=== PATIENT | female | born 1995 | race African-American/Black ===

== ENCOUNTER → 2017-02-06 | Outpatient (CLI) | payer OTHER ==
[2016-08-11 18:13] VITALS: BP 117/74
[2017-02-06 15:09] LABS: BILIRUBIN,URINE NEGATIVE (NEGATIVE); BLOOD/HEMOGLOBIN,URINE 2+ (NEGATIVE); GLUCOSE, URINE NEGATIVE (NEGATIVE); KETONES,URINE NEGATIVE (NEGATIVE); LEUKOCYTE ESTERASE ,URINE 1+ (NEGATIVE); NITRITES,URINE NEGATIVE (NEGATIVE); PROTEIN,URINE 1+ (NEGATIVE); UROBILINOGEN,URINE NORMAL (NORMAL)
[2017-02-06 15:14] LABS: BLOOD UREA NITROGEN 10 mg/dL (7-18); CALCIUM 8.1 mg/dL (8.5-10.1); CHLORIDE 104 mmol/L (98-107); CREATININE 0.73 mg/dL (0.55-1.02); GLUCOSE 95 mg/dL (65-99); SODIUM 136 mmol/L (136-145); eGFR BLACK RACES > 60 (>60); eGFR NON BLACK RACES > 60 (>60)
[2017-02-06 15:15] LABS: BASOPHILS # (AUTO) 0.1 X10^3/uL (0.0-0.1); MEAN CORPUSCULAR HGB CONC 33.6 g/dL (33.0-35.0); MONOCYTES # (AUTO) 0.6 x10^3/uL (0.3-0.8); RED CELL DISTRIBUTION WIDTH 13.1 % (11.6-16.5); WHITE BLOOD COUNT 9.5 X10^3/uL (3.6-10.0)
[2017-02-06 15:21] LABS: BASOPHILS % (AUTO) 0.7 % (0.2-1.0); EOSINOPHILS % (AUTO) 0.4 % (0.9-2.9); HEMATOCRIT 32.8 % (36.0-47.0); LYMPHOCYTES # (AUTO) 1.8 X10^3/uL (1.3-2.9); LYMPHOCYTES % (AUTO) 18.9 % (21.0-51.0); MEAN CORPUSCULAR HEMOGLOBIN 29.5 pg (27.0-34.0); MEAN CORPUSCULAR VOLUME 87.8 fL (80.0-100.0); MEAN PLATELET VOLUME 10.6 fL (7.4-11.0); MONOCYTES % (AUTO) 6.1 % (0.0-13.0); NEUTROPHILS % (AUTO) 73.9 % (42.0-75.0); PLATELET COUNT 178 X10^3/uL (150.0-450.0); RED BLOOD COUNT 3.73 X10^6/uL (3.5-5.4)
[2017-02-06 16:33] LABS: APPEARANCE,URINE CLEAR (CLEAR); BACTERIA,URINE TRACE /HPF (NEGATIVE); COLOR,URINE YELLOW (YELLOW); SQUAMOUS EPITHELIAL CELL,UR NUMEROUS /HPF (NEGATIVE)
[2017-02-06 16:34] LABS: RENAL EPITHELIAL CELLS,URINE RARE /HPF (NEGATIVE); SPERM,URINE FEW /HPF (NEGATIVE)
[2017-02-06 16:36] LABS: YEAST,URINE RARE /HPF (NEGATIVE)
== END ==
LOC: LAB 14:31
PROVIDERS: ATTEND Specialist
DX: Z01.818 Encounter for other preprocedural examination (principal); Z34.83 Encounter for supervision of other normal pregnancy, third trimester
CPT/HCPCS: 36415; 80048; 81001; 85025; 86592; 86850; 86900; 86901

== ENCOUNTER 2017-02-10 06:43 | Inpatient (IN) | payer OTHER ==
[2017-02-10] MEDS: D5 1/2 NS 1000 ML 1,000 ML IV SCH ×2 (06:50→15:41)
[2017-02-10] MEDS ORDERED: LR 1000 ML IV 1,000 ML IV ONE ×2 (06:52→10:00)
[2017-02-10] MEDS ORDERED: D5 1/2 NS 1000 ML 1,000 ML IV ONE (06:53)
[2017-02-10] MEDS ORDERED: D5LR 1000ML W PITOCIN 10 U/L 1,000 ML IV ONE (06:53)
[2017-02-10] MEDS ORDERED: PITOCIN ONE (06:53)
[2017-02-10] MEDS ORDERED: NUBAIN INJ 200 MG VIAL MULTIDOSE IVP PRN (06:56)
[2017-02-10] MEDS ORDERED: PHENERGAN INJ 25 MG IV PRN ×3 (06:56→15:37)
[2017-02-10] MEDS ORDERED: MORPHINE SULFATE INJ 2 MG IVP PRN (06:56)
[2017-02-10] MEDS ORDERED: PITOCIN IVP ONE (06:56)
[2017-02-10] MEDS ORDERED: REGLAN INJ 10 MG VIAL IVP PRN ×2 (06:56→15:37)
[2017-02-10] MEDS ORDERED: PITOCIN 10 UNITS in D5 LR 1000 ML 1,000 ML IV PRN (06:56)
[2017-02-10] MEDS ORDERED: AMPICILLIN VIAL 2 GM 2 GM in NS 100 ML IV + SPIKE MINIBAG* 100 ML IV SCH (06:56)
--- NOTE | 2017-02-10 07:15 | DR.OB ---
OB Quick Note - Assessment/Plan Assessment/Plan: L&D 02/10/17 at 7:10am S-No complaint. O-Afebrile, VSS UJR=409 with good LTV, +accel, no decel. CTX=none CVX=3cm/50%/-1/VTX AROM with clear fluid. IUPC and FSE placed. A-IUP at 39 2/7 weeks for induction h/o +GBS P-Begin pitocin induction Ampicillin in labor for h/o GBS Anticipate
[2017-02-10] MEDS ORDERED: NS 100 ML IV 100 ML IV ONE (07:37)
[2017-02-10] MEDS ORDERED: AMPICILLIN VIAL 2 GM ONE (07:37)
[2017-02-10] MEDS ORDERED: NAROPIN EPIDURAL 0.2% + FENTANYL 90MCG 60 ML EPI ONE (08:52)
[2017-02-10] MEDS ORDERED: FENTANYL INJ 100 mcg ONE (08:53)
[2017-02-10] MEDS ORDERED: NUBAIN INJ 10 ONE (09:05)
[2017-02-10] MEDS ORDERED: NAROPIN EPIDURAL 0.2% 97 ML with FENTANYL INJ 250 mcg 150 MCG EPI ONE ×2 (10:00)
[2017-02-10] MEDS ORDERED: NS 50 ML IV + SPIKE MINIBAG* 50 ML IV ONE (11:01)
[2017-02-10] MEDS ORDERED: AMPICILLIN VIAL 1 GM ONE (11:01)
[2017-02-10] MEDS ORDERED: AMPICILLIN VIAL 1 GM 1 GM in NS 50 ML IV + SPIKE MINIBAG* 50 ML IV SCH (12:00)
[2017-02-10] MEDS ORDERED: MOTRIN TAB 800 MG PO PRN ×2 (13:35→15:37)
[2017-02-10] MEDS ORDERED: NS 1000 ML 1,000 ML ONE (13:48)
[2017-02-10] MEDS ORDERED: D5 1/2 NS 1000ML W PITOCIN 20 U/L 1,000 ML IV ONE (13:48)
[2017-02-10] MEDS ORDERED: D5 1/2 NS 1000 ML 1,000 ML with PITOCIN 20 UNITS IV SCH ×4 (14:00→22:00)
[2017-02-10] MEDS ORDERED: MILK OF MAGNESIA PO PRN (15:37)
[2017-02-10] MEDS ORDERED: AMBIEN PO PRN (15:37)
[2017-02-10] MEDS ORDERED: DERMOPLAST SPRAY TOP PRN (15:37)
[2017-02-10] MEDS ORDERED: ADACEL TDaP IM ONE (15:37)
--- NOTE | 2017-02-10 16:19 | DR.OB ---
OB Quick Note - Assessment/Plan Assessment/Plan: L&D 02/10/17 at 11:55am Pitocin=14mu/min. Ampicillin S-No complaint. s/p epidural. O-Afebrile,VSS MNE=045 with good LTV, +accel, no decel. Occ. mild variables. CTX=q 2-2 1/2 min., about 45-55mmHg CVX=8cm/75%/-1 A-IUP at 39 2/7 weeks for induction h/o GBS P-Cont. pitocin induction and abx. in labor Anticipate
--- NOTE | 2017-02-10 16:23 | DR.OB ---
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 Head delivered over intact perineum. Nuchal cord x 1 reduced and loose. Nose and mouth bulb suctioned. Body delivered over intact perineum. handed to attendant. Cord sent for gases. Placenta delivered spontaneously / intact / 3 vessel cord. No CVX / vaginal / perineal tears. A small piece of membranes noted at os and grasped with forceps removing entirely. Viable female infant, VTX/OA, wt=6'4" and 9/9 , stable to NBN. Mother stable to RR. VSW=[id number].
[2017-02-10] MEDS: ZANTAC PO SCH (20:17)
[2017-02-11 05:16] LABS: HEMATOCRIT 26.2 % (36.0-47.0); HEMOGLOBIN 8.6 g/dL (12.0-16.0)
[2017-02-11] MEDS ORDERED: DEPO-PROVERA CONTRACEPTIVE INJ IM ONE (07:36)
[2017-02-11] MEDS: ZANTAC PO SCH (08:13)
[2017-02-11] MEDS ORDERED: PRENATAL PLUS PO SCH (09:00)
[2017-02-11 11:28] VITALS: BP 130/72
[2017-02-11] MEDS ORDERED: FERROUS SULFATE PO SCH (17:00)
== END 2017-02-11 13:30 | disposition home or self-care (01) | DRG 775 ==
LOC: LD 06:43 → MED/SURG 15:57
PROVIDERS: ADMIT Specialist; ATTEND Specialist
PROC: 10E0XZZ Delivery of Products of Conception, External Approach (ICD-10-PCS; principal; 2017-02-10)
PROC: 10907ZC Drainage of Amniotic Fluid, Therapeutic from Products of Conception, Via Natural or Artificial Opening (ICD-10-PCS; 2017-02-10)
PROC: 3E033VJ Introduction of Other Hormone into Peripheral Vein, Percutaneous Approach (ICD-10-PCS; 2017-02-10)
PROC: 00HU33Z Insertion of Infusion Device into Spinal Canal, Percutaneous Approach (ICD-10-PCS; 2017-02-10)
PROC: 3E0234Z Introduction of Serum, Toxoid and Vaccine into Muscle, Percutaneous Approach (ICD-10-PCS; 2017-02-10)
DX: O99.02 Anemia complicating childbirth (principal); Z37.0 Single live birth; O99.824 Streptococcus B carrier state complicating childbirth; O26.893 Other specified pregnancy related conditions, third trimester; D50.8 Other iron deficiency anemias; Z3A.39 39 weeks gestation of pregnancy; Z23 Encounter for immunization
CPT/HCPCS: 09167; 36415; 59409; 85014; 85018; A4216; A4222; S0197; J0290; J1050; J2300; J2590; J3010; J7042; J7120

== ENCOUNTER 2017-04-04 20:34 | Inpatient (IN) | payer OTHER ==
[2017-04-04] MEDS ORDERED: TORADOL 30 MG VIAL IVP STA (21:17)
--- NOTE | 2017-04-04 21:22 | DR.GENAD ---
HPI - PCP Primary Care Physician: NFD - Complaint/Symptoms Chief Complaint Doctors Comments: Patient is complaining of swelling and pain in her left leg and thigh for the past four days with SOB but denies chest pain. States she slept in a recliner in the hospital four days while her baby was in the hospital in [place] with her legs hurting initially and last night her left leg begin to swell with pain in her left thigh. States the pain is 9 of 10. She has taken Alieve without improvement. States she smokes 1/2 pack cigarettes daily but denies alcohol or drug usae. She is a patient of Dr. Lindsey and she is taking Depro Provera. She is complaining of fever and chills since 7pm last night like she is freezing. She denies cold or cough. Chief Complaint:: SWELLING IN LEFT LEG - Nurses notes reviewed Nurses Notes Review: Yes - Source History Provided: Patient - Mode of Arrival Mode of Arrival: Ambulatory - Timing Onset of Chief Complaint: 03/31/17 Came on: Suddenly - Duration Duration: Constant How lon Duration: Days - Location Location: left lower leg - Severity Severity: Moderate - Modifying Factors Worsens:: movement and walking Improves:: nothing PMH - PMH Past Medical History: No Past Surgical History: No - Family History History of Family Medical Conditions: Yes Family Medical History: Coronary Artery Disease - Social History Does patient currently use any type of tobacco product: Yes Have you used tobacco products in the last 12 months: Yes Type of Tobacco Use: Cigarettes Does any household member use tobacco: No Alcohol Use: None Do you use any recreational Drugs:: No Lives With: Family Lives Where: Home - infectious screening In the last 2 months have you had wt loss of >10#?: NO Have you had fever, night sweats or hemotysis?: No Have you traveled outside the country in the last 6 months?: No Isolation: Standard ROS - Review of Systems Constitutional: No Symptoms Reported, Chills, Fever, Weakness, Fatigue. negative: See HPI, Diaphoresis, Malaise, Irritable, Loss of Appetite, Other Eyes: No Symptoms Reported. negative: See HPI, Eye Pain, Blurred Vision, Tearing, Discharge, Photophobia, Diplopia, Other ENTM: No Symptoms Reported. negative: See HPI, Ear Pain, Ear Discharge, Pulling on Ears, Hearing Loss, Nose Pain, Nose Discharge, Epistaxis, Nose Congestion, Mouth Pain, Mouth Swelling, Loose Teeth, Drooling, Throat Pain, Throat Swelling, Ear Foreign Body Respiratoy: No Symptoms Reported. negative: See HPI, Productive Cough, Non- Productive Cough, Moist Cough, Dry Cough, Hacking Cough, Barking Cough, Brassy Cough, Orthopnea, Short of Breath, Stridor, Wheezing, Hemoptysis, Other Cardiovascular: negative: No Symptoms Reported, See HPI, Chest Pain, Edema, Palpitations, Syncope, Cyanosis, Skin Mottling, Other Gastrointestinal/Abdominal: No Symptoms Reported. negative: See HPI, Abdominal Pain, Constipation, Diarrhea, Nausea, Vomiting, Food Intolerance, Other Genitourinary: No Symptoms Reported. negative: See HPI, Discharge, Dysuria, Frequency, Hematuria, Pain, Bleeding, Other Neurological: No Symptoms Reported, Problems Walking (left leg pain). negative : See HPI, Anxiety, Depressed, Emotional Problems, Headache, Numbness, Paresthesia, Pre-existing Deficit, Seizure, Tingling, Tremors, Weakness, Dizziness, Speech Problem, Other Musculoskeletal: No Symptoms Reported, Muscle Pain, Muscle Stiffness, Left, Leg Integumentary: No Symptoms Reported. negative: See HPI, Change in Color, Change in Hair/Nails, Dryness, Lesions, Lumps, Rash, Itching, Wound, Bruises, Juandice, Other Hematologic/Lymphatic: No Symptoms Reported. negative: See HPI, Anemia, Blood Clots, Easy Bleeding, Easy Bruising, Swollen Glands, Lymphadenopathy, Other Endocrine: No Symptoms Reported Psychiatric: No Symptoms Reported. negative: See HPI, Anxiety, Depression, Hallucinations, Excessive crying, Suicidal, Other PE - Vital Signs Vitals: Temperature 100.1 F Pulse Rate 85 Respiratory Rate 16 Blood Pressure [Left Arm] 130/72 Blood Pressure 143/73 O2 Sat by Pulse Oximetry 100 - General Limitations: No Limitations General Appearance: Alert, In Distress (moderate). negative: In No Apparent Distress, Appears Intoxicated, Anxious, Lethargic, Obtunded, Obese, Cachectic, Other - Head Head Exam: Normal Inspection, Atraumatic, Normocephalic - Eyes Eye exam: Normal Appearance, PERRL, EOMI. negative: Scleral Icterus, Conjunctival Injection, Nystagmus, Miosis, Mydrasis, Periorbital Swelling, Periorbital Tenderness, Other - ENT ENT Exam: Normal Exam, Normal Oropharynx, Normal External Ear Exam, Mucous Membranes Moist, TM's Normal Bilaterally External Ear Exam: Normal External Inspection TM/Canal Exam: Bilateral Normal Nose Exam: Normal Nose Exam Mouth Exam: Normal Inspection Throat Exam: Normal Inspection - Neck Neck Exam: Normal Inspection, Full ROM, Trachea Midline. negative: Tenderness, Meningismus, Lymphadenopathy, Thyromegaly, Other - Chest Chest Inspection: Normal Inspection, Symmetric Chest Wall Rise. negative: Tenderness, Rash, Abscess, Other - Respiratory Respiratory Exam: Normal Lung Sounds Bilat. negative: Accessory Muscle Use, Chest Wall Tenderness, Prolonged Expiratory Phase, Respiratory Distress, Stridor , Other Respiratory Exam: Bilateral Clear to Auscultation - Cardiovascular Cardiovascular Exam: Regular Rate, Normal Rhythm, Normal Heart Sounds. negative : Bradycardia, Tachycardia, Irregular Rhythm, Systolic Murmur, Diastolic Murmur , Rubs, Gallop, Clicks, JVD, +S1, +S2, +S3, +S4, Other - Abdominal Exam Abdominal Exam: Normal Inspection, Normal Bowel Sounds, Soft. negative: Distention, Tenderness, Guarding, Rebound, Rigidity, Dimnished Bowel Sounds, Hyperactive Bowel Sounds, Hypoactive Bowel Sounds, Organomegaly, Trauma, Incision, Ascites, Mass, Bruit, Pulsatile Mass, Hernia, Other Abdominal Tenderness: negative: RUQ, RLQ, LUQ, LLQ, Epigastrium, Suprapubic, Diffuse, Mild, Moderate, Severe, Other - Extremities Extremities Exam: Normal Inspection, Full ROM, Tenderness (left leg and thigh tenderness), Normal Capillary Refill, Edema, Calf Tenderness (left calf tenderness) - Back Back Exam: Normal Inspection, Full ROM. negative: Tenderness, (R) CVA Tenderness, (L) CVA Tenderness, Muscle Spasm, Paraspinal Tenderness, Vertebral Tenderness, Rashes, (R) Sciatic Notch Tenderness, (L) Sciatic Notch Tendern, (R ) Straight Leg Raise, (L) Straight Leg Raise, Other - Neurologic Neurological Exam: Alert, Oriented X3, CN II-XII Intact, Reflexes Normal. negative: Normal Gait (gait not tested) - Psychiatric Psychiatric Exam: Normal Affect, Normal Mood. negative: Depressed, Agitated, Anxious, Flat Affect, Manic, Homicidal Ideation, Suicidal Ideation, Other - Skin Skin Exam: Warm, Dry, Intact, Normal Color. negative: Rash, Cyanosis, Diaphoresis, Erythema, Pallor, Mottled, Other Course - Reevaluation 1st: Improved - Consultation Called: 03:47 Call Returned: 03:47 (Dr. Gaytan to admit) - Education/Counseling Education/Counseling: Patient Educated On: Treatment, Diagnosis, Prognosis, Needs for Follow Up ROR - Labs Reviewed Laboratory Results Reviewed?: Yes (all labs and x-ray results reviewed and discussed with patient) Result Diagrams: 04/04/17 21:34 04/04/17 21:34 Laboratory: WBC 8.5 X10^3/uL (3.6-10.0) 04/04/17 21:34 RBC 4.09 X10^6/uL (3.5-5.4) 04/04/17 21:34 Hgb 11.0 g/dL (12.0-16.0) L 04/04/17 21:34 Hct 34.0 % (36.0-47.0) L 04/04/17 21:34 MCV 83.3 fL (80.0-100.0) 04/04/17 21:34 MCH 26.8 pg (27.0-34.0) L 04/04/17 21:34 MCHC 32.2 g/dL (33.0-35.0) L 04/04/17 21:34 RDW 15.2 % (11.6-16.5) 04/04/17 21:34 Plt Count 133 X10^3/uL (150.0-450.0) L 04/04/17 21:34 MPV 10.0 fL (7.4-11.0) 04/04/17 21:34 Neut % 73.5 % (42.0-75.0) 04/04/17 21:34 Lymph % 15.6 % (21.0-51.0) L 04/04/17 21:34 Barron % 8.8 % (0.0-13.0) 04/04/17 21:34 Eos % 0.7 % (0.9-2.9) L 04/04/17 21:34 Baso % 1.4 % (0.2-1.0) H 04/04/17 21:34 Neut # 6.3 x10^3/uL (2.2-4.8) H 04/04/17 21:34 Lymph # 1.3 X10^3/uL (1.3-2.9) 04/04/17 21:34 Barron # 0.7 x10^3/uL (0.3-0.8) 04/04/17 21:34 Eos # 0.1 x10^3/uL (0.0-0.2) 04/04/17 21:34 Baso # 0.1 X10^3/uL (0.0-0.1) 04/04/17 21:34 Absolute Nucleated RBC 0.0 /100WBC 04/04/17 21:34 INR Target Range - 04/04/17 21:34 INR 1.04 (0.8-1.3) 04/04/17 21:34 PTT 28.4 SECONDS (22.9-36.5) 04/04/17 21:34 PTT Comment - 04/04/17 21:34 D-Dimer > 5000 ng/mL (0-400) H* 04/04/17 21:34 Sodium 140 mmol/L (136-145) 04/04/17 21:34 Corrected Sodium TNP 04/04/17 21:34 Potassium 3.6 mmol/L (3.5-5.1) 04/04/17 21:34 Chloride 106 mmol/L (98-107) 04/04/17 21:34 Carbon Dioxide 27.0 mmol/L (21-32) 04/04/17 21:34 BUN 10 mg/dL (7-18) 04/04/17 21:34 Creatinine 0.96 mg/dL (0.55-1.02) 04/04/17 21:34 Est GFR (MDRD) Af Amer > 60 (>60) 04/04/17 21:34 Est GFR (MDRD) Non-Af > 60 (>60) 04/04/17 21:34 Glucose 92 mg/dL (65-99) 04/04/17 21:34 Calcium 8.9 mg/dL (8.5-10.1) 04/04/17 21:34 Corrected Calcium TNP 04/04/17 21:34 Magnesium 1.9 mg/dL (1.7-2.9) 04/04/17 21:34 Total Bilirubin 0.40 mg/dL (0.2-1.0) 04/04/17 21:34 AST 12 Units/L (15-37) L 04/04/17 21:34 ALT 18 Units/L (12-78) 04/04/17 21:34 Alkaline Phosphatase 54 Units/L (46-116) 04/04/17 21:34 Creatine Kinase 63 Units/L (26-192) 04/04/17 21:34 CK-MB (CK-2) < 1.0 ng/mL (0-4.0) 04/04/17 21:34 CK/CKMB % Calc 1.6 % (<4) 04/04/17 21:34 Troponin I < 0.02 ng/mL (0-1.5) 04/04/17 21:34 Total Protein 7.4 g/dL (6.4-8.2) 04/04/17 21:34 Albumin 3.6 g/dL (3.4-5.0) 04/04/17 21:34 Globulin 3.8 g/dL (2.5-4.5) 04/04/17 21:34 Albumin/Globulin Ratio 0.9 Ratio (1.1-2.1) L 04/04/17 21:34 - Diagnosis Discharge Problem: Left leg pain Deep venous thrombosis of distal end of left lower extremity Qualifiers: Chronicity: acute Qualified Code(s): I82.4Z2 - Acute embolism and thrombosis of unspecified deep veins of left distal lower extremity - Discharge Plan Disposition: ADMITTED INPATIENT Condition: Stable - Follow ups/Referrals Follow ups/Referrals: NFD,None [Primary Care Provider] - 3 days - Instructions
[2017-04-04 21:46] LABS: BASOPHILS # (AUTO) 0.1 X10^3/uL (0.0-0.1); BASOPHILS % (AUTO) 1.4 % (0.2-1.0); EOSINOPHILS # (AUTO) 0.1 x10^3/uL (0.0-0.2); EOSINOPHILS % (AUTO) 0.7 % (0.9-2.9); LYMPHOCYTES # (AUTO) 1.3 X10^3/uL (1.3-2.9); LYMPHOCYTES % (AUTO) 15.6 % (21.0-51.0); MEAN CORPUSCULAR HEMOGLOBIN 26.8 pg (27.0-34.0); MEAN CORPUSCULAR HGB CONC 32.2 g/dL (33.0-35.0); MEAN CORPUSCULAR VOLUME 83.3 fL (80.0-100.0); MONOCYTES # (AUTO) 0.7 x10^3/uL (0.3-0.8); MONOCYTES % (AUTO) 8.8 % (0.0-13.0); NEUTROPHILS # (AUTO) 6.3 x10^3/uL (2.2-4.8); NEUTROPHILS % (AUTO) 73.5 % (42.0-75.0); PLATELET COUNT 133 X10^3/uL (150.0-450.0); RED BLOOD COUNT 4.09 X10^6/uL (3.5-5.4); RED CELL DISTRIBUTION WIDTH 15.2 % (11.6-16.5); WHITE BLOOD COUNT 8.5 X10^3/uL (3.6-10.0)
[2017-04-04 21:59] LABS: BLOOD UREA NITROGEN 10 mg/dL (7-18); CALCIUM 8.9 mg/dL (8.5-10.1); CHLORIDE 106 mmol/L (98-107); CREATININE 0.96 mg/dL (0.55-1.02); GLUCOSE 92 mg/dL (65-99); SODIUM 140 mmol/L (136-145); TROPONIN I < 0.02 ng/mL (0-1.5); eGFR BLACK RACES > 60 (>60); eGFR NON BLACK RACES > 60 (>60)
[2017-04-04 22:03] LABS: ALANINE AMINOTRANSFERASE 18 Units/L (12-78); ALBUMIN 3.6 g/dL (3.4-5.0); ALKALINE PHOSPHATASE 54 Units/L (46-116); ASPARTATE AMINO TRANSFERASE 12 Units/L (15-37); CKMB % 1.6 % (<4); CREATINE KINASE 63 Units/L (26-192); CREATINE KINASE MB < 1.0 ng/mL (0-4.0); MAGNESIUM 1.9 mg/dL (1.7-2.9); TOTAL PROTEIN 7.4 g/dL (6.4-8.2)
[2017-04-04 22:14] LABS: D DIMER > 5000 ng/mL (0-400)
[2017-04-04] MEDS ORDERED: TORADOL 30 MG VIAL ONE (23:44)
[2017-04-04] MEDS: NS 1000 ML 1,000 ML IV SCH (23:50)
[2017-04-05] MEDS ORDERED: HEPARIN SODIUM IN D5W 25,000 UNITS/500 ML BAG IV PRN (03:41)
[2017-04-05] MEDS ORDERED: ZOFRAN INJ 4 MG VIAL IVP PRN (03:53)
--- NOTE | 2017-04-05 03:53 | VAS ---
HISTORY: Bilateral lower extremity swelling, left greater than right Study: Bilateral lower extremity venous Doppler ultrasound Comparison: None TECHNIQUE: Multiple taylor scale and color flow Doppler images of the deep venous system were obtaine d of the right and left lower extremity. FINDINGS: The deep venous system of the right and left lower extremities were evaluated from the level of the common femoral vein through the popliteal vein. There is occlusive thrombus throughout the visualiz ed left lower extremity veins. Normal color flow, augmentation, and compression can be observed thro ughout the right deep venous system. IMPRESSION: 1. Extensive occlusive left lower extremity DVT. 2. Negative for right-sided DVT. A preliminary report of these findings was given by the arc and gas welder to the patient's nurse Brendan carlton RN at the conclusion of the study. Reported By:
[2017-04-05] MEDS ORDERED: NORCO 7.5/325 MG TAB PO PRN (03:54)
[2017-04-05] MEDS ORDERED: HEPARIN SODIUM INJ 5000 UNITS IVP ONE ×2 (03:56→11:26)
[2017-04-05] MEDS ORDERED: HEPARIN SODIUM INJ 5000 UNITS ONE ×2 (04:10→11:30)
[2017-04-05 05:35] VITALS: BMI 30.4
[2017-04-05] MEDS: NS 1000 ML 1,000 ML IV SCH ×2 (07:43→11:40)
[2017-04-05] MEDS ORDERED: PROTONIX INJ 40 MG VIAL IVP SCH (09:00)
[2017-04-05 14:03] VITALS: BP 114/47
[2017-04-05] MEDS ORDERED: ELIQUIS PO ONE (14:50)
== END 2017-04-05 16:00 | disposition home or self-care (01) | DRG 301 ==
LOC: ER 20:47 → ICU 04-05 03:49
PROVIDERS: ADMIT Internal Medicine; ATTEND Internal Medicine
DX: I82.4Z2 Acute embolism and thrombosis of unspecified deep veins of left distal lower extremity (principal); R06.02 Shortness of breath; M79.605 Pain in left leg; R60.0 Localized edema
CPT/HCPCS: 36415; 80053; 82550; 82553; 83735; 84484; 85025; 85378; 85610; 85730; 93970; 96365; 96367; 96374; 96375; 99234; 99284; 99285; A4216; A4222; C9113; J1644; J1885

== ENCOUNTER 2017-04-15 14:52 | Inpatient (IN) | payer OTHER ==
--- NOTE | 2017-04-15 15:40 | DR.H&P ---
H&P - History & Physical for Day of: H&P Date: 04/15/17 - Chief Complaint Chief Complaint: LLE PAIN AND SWELLING - Allergies Allergies/Adverse Reactions: Allergies Allergy/AdvReac Type Severity Reaction Status Date / Time No Known Drug Allergy Allergy Verified 07/24/16 21:48 - History of Present Illness History of Present Illness: 21 WHITE FEMALE DIRECT ADMIT FROM DR ZENDEJAS OFFICE WITH CO SEVERE LLE SWELLING AND PAIN. PT WAS RECENTLY DIAGNOSED WITH LLE DVT, PT HAS BEEN PO ELIQUIS. PT STATES EDEMA HAS GOTTEN SO SEVERE DOWN TO KNEE AND CALF SHE CANNOT MOVE KNEE JOINT. PT UNABLE TO BEAR WEIGHT. PLAN TO ADMIT FOR PAIN CONTROL, TREATMENT OF EDEMA AND KNEE EFFUSION, REPEAT US EXTREMITIES - Past Medical History Additional Medical History: DVT - Family History Family Medical History: Diabetes Mellitus, Heart Failure - Social History Does patient currently use any type of tobacco product: No Have you used tobacco products in the last 12 months: No Type of Tobacco Use: None Does any household member use tobacco: No Alcohol Use: None Drug Use: None - Review of Systems Constitutional: No Symptoms Reported Eyes: No Symptoms Reported ENT: No Symptoms Reported Respiratory: No Symptoms Reported Cardiovascular: No Symptoms Reported Gastrointestinal: No Symptoms Reported Genitourinary: No Symptoms Reported Musculoskeletal: Leg Pain (LLE PAIN) Skin: No Symptoms Reported Neurological: No Symptoms Reported - Physical Exam Vital Signs: Blood Pressure [Left Arm] 114/47 Blood Pressure 114/47 Oriented: Normal Eyes: Normal Ear: Normal Nose: Normal Throat: Normal Respiratory: Clear Throughout Cardiovascular: Normal : Normal Auscultation: Bowel Sounds: Normal Palpation: Normal Tenderness: Normal Skin: Red (LLE FROM THIGH DOWN), Tender, Hot Musculoskeletal: Left, Knee, Leg, Swelling, Tender Psychiatric: Normal Speech Pattern: Clear, Appropriate - Assessment/Plan (1) Left knee pain Qualifiers: Chronicity: C Status: Acute (2) Deep venous thrombosis of distal end of left lower extremity Qualifiers: Chronicity: acute Qualified Code(s): I82.4Z2 - Acute embolism and thrombosis of unspecified deep veins of left distal lower extremity Status: Acute Plan: ADMIT, CONTINUE ELIQUIS, REPEAT AM LABS, US LLE. KNEE XRAY, PAIN CONTRL (3) Left leg pain Status: Acute
[2017-04-15] MEDS ORDERED: ELIQUIS PO SCH (15:45)
[2017-04-15 16:17] VITALS: BMI 30.9
[2017-04-15 17:07] LABS: BASOPHILS # (AUTO) 0.1 X10^3/uL (0.0-0.1); BASOPHILS % (AUTO) 0.7 % (0.2-1.0); EOSINOPHILS # (AUTO) 0.1 x10^3/uL (0.0-0.2); EOSINOPHILS % (AUTO) 0.9 % (0.9-2.9); HEMATOCRIT 29.2 % (36.0-47.0); HEMOGLOBIN 9.5 g/dL (12.0-16.0); LYMPHOCYTES # (AUTO) 1.5 X10^3/uL (1.3-2.9); LYMPHOCYTES % (AUTO) 18.7 % (21.0-51.0); MEAN CORPUSCULAR HEMOGLOBIN 26.2 pg (27.0-34.0); MEAN CORPUSCULAR HGB CONC 32.5 g/dL (33.0-35.0); MEAN CORPUSCULAR VOLUME 80.6 fL (80.0-100.0); MEAN PLATELET VOLUME 7.5 fL (7.4-11.0); MONOCYTES # (AUTO) 0.8 x10^3/uL (0.3-0.8); MONOCYTES % (AUTO) 10.2 % (0.0-13.0); NEUTROPHILS # (AUTO) 5.7 x10^3/uL (2.2-4.8); NEUTROPHILS % (AUTO) 69.5 % (42.0-75.0); PLATELET COUNT 443 X10^3/uL (150.0-450.0); RED BLOOD COUNT 3.62 X10^6/uL (3.5-5.4); RED CELL DISTRIBUTION WIDTH 16.3 % (11.6-16.5); WHITE BLOOD COUNT 8.2 X10^3/uL (3.6-10.0)
[2017-04-15 17:20] LABS: ALANINE AMINOTRANSFERASE 22 Units/L (12-78); ALBUMIN 2.5 g/dL (3.4-5.0); ALKALINE PHOSPHATASE 58 Units/L (46-116); ASPARTATE AMINO TRANSFERASE 14 Units/L (15-37); BLOOD UREA NITROGEN 9 mg/dL (7-18); CALCIUM 8.9 mg/dL (8.5-10.1); CARBON DIOXIDE 27.1 mmol/L (21-32); CHLORIDE 104 mmol/L (98-107); COR CA(FOR HYPOALB) 10.1 mg/dL (8.5-10.1); CREATININE 0.71 mg/dL (0.55-1.02); GLUCOSE 85 mg/dL (65-99); MAGNESIUM 1.6 mg/dL (1.7-2.9); SODIUM 138 mmol/L (136-145); TOTAL PROTEIN 7.1 g/dL (6.4-8.2); eGFR BLACK RACES > 60 (>60); eGFR NON BLACK RACES > 60 (>60)
[2017-04-15 17:49] LABS: ERYTHROCYTE SEDIMENTATION RATE 99 MM/HOUR (0-20)
[2017-04-15] MEDS: TORADOL 15 MG VIAL IVP PRN (17:50)
--- NOTE | 2017-04-15 18:17 | RAD ---
HISTORY: Left knee stiffness, pain Study: Three views left knee Comparison: None Findings: Normal alignment. No acute fracture or dislocation. The soft tissues are unremarkable. IMPRESSION: 1. No acute osseous abnormality. Reported By:
[2017-04-15] MEDS: NS 1000 ML 1,000 ML IV SCH (18:59)
[2017-04-15] MEDS: PERCOCET TAB 5/325 MG PO PRN (19:00)
--- NOTE | 2017-04-15 19:17 | VAS ---
HISTORY: Pain Study: Venous Doppler study of lower extremities Comparison: 04/05/2017 TECHNIQUE: Multiple taylor scale and color flow Doppler images of the deep venous system were obtaine d of the right and left lower extremity. FINDINGS: The deep venous system of the right and left lower extremities were evaluated from the level of the common femoral vein through the popliteal vein. Normal color flow and augmentation can be observed in the right leg . There is echogenic thrombus seen throughout the common femoral, superficial femor al and popliteal veins on the left which do not show any flow which is unchanged. IMPRESSION: 1. Negative for DVT in the right leg. 2. Persistent DVT throughout the left leg which is unchanged. Reported By:
[2017-04-15 20:40] LABS: HEMATOCRIT 29.3 % (36.0-47.0); HEMOGLOBIN 9.5 g/dL (12.0-16.0)
[2017-04-15] MEDS ORDERED: HEPARIN SODIUM INJ 5000 UNITS IVP ONE (20:43)
[2017-04-15] MEDS: ELIQUIS PO SCH (21:41)
[2017-04-15] MEDS: COLACE CAP 100 MG PO SCH (21:41)
[2017-04-15] MEDS: HEPARIN SODIUM IN D5W 25,000 UNITS/500 ML BAG IV PRN (21:49)
[2017-04-16] MEDS: PERCOCET TAB 5/325 MG PO PRN ×2 (04:38→20:13)
[2017-04-16] MEDS ORDERED: HEPARIN SODIUM INJ 5000 UNITS IVP ONE ×2 (05:20→20:56)
[2017-04-16 06:27] LABS: BASOPHILS % (AUTO) 0.6 % (0.2-1.0); EOSINOPHILS # (AUTO) 0.2 x10^3/uL (0.0-0.2); EOSINOPHILS % (AUTO) 2.2 % (0.9-2.9); HEMATOCRIT 27.2 % (36.0-47.0); HEMOGLOBIN 8.9 g/dL (12.0-16.0); LYMPHOCYTES % (AUTO) 24.8 % (21.0-51.0); MEAN CORPUSCULAR HEMOGLOBIN 26.1 pg (27.0-34.0); MEAN CORPUSCULAR HGB CONC 32.7 g/dL (33.0-35.0); MEAN CORPUSCULAR VOLUME 79.9 fL (80.0-100.0); MEAN PLATELET VOLUME 8.7 fL (7.4-11.0); MONOCYTES # (AUTO) 0.9 x10^3/uL (0.3-0.8); MONOCYTES % (AUTO) 11.6 % (0.0-13.0); NEUTROPHILS # (AUTO) 4.8 x10^3/uL (2.2-4.8); NEUTROPHILS % (AUTO) 60.8 % (42.0-75.0); PLATELET COUNT 398 X10^3/uL (150.0-450.0); RED BLOOD COUNT 3.41 X10^6/uL (3.5-5.4); WHITE BLOOD COUNT 7.9 X10^3/uL (3.6-10.0)
[2017-04-16 06:45] LABS: ALANINE AMINOTRANSFERASE 22 Units/L (12-78); ALBUMIN 2.3 g/dL (3.4-5.0); ALKALINE PHOSPHATASE 54 Units/L (46-116); BLOOD UREA NITROGEN 10 mg/dL (7-18); CALCIUM 8.7 mg/dL (8.5-10.1); CARBON DIOXIDE 23.8 mmol/L (21-32); CHLORIDE 105 mmol/L (98-107); COR CA(FOR HYPOALB) 10.1 mg/dL (8.5-10.1); CREATININE 0.63 mg/dL (0.55-1.02); GLUCOSE 100 mg/dL (65-99); SODIUM 137 mmol/L (136-145); TOTAL PROTEIN 6.6 g/dL (6.4-8.2); eGFR BLACK RACES > 60 (>60); eGFR NON BLACK RACES > 60 (>60)
[2017-04-16 07:16] LABS: ASPARTATE AMINO TRANSFERASE 17 Units/L (15-37)
[2017-04-16] MEDS: NS 1000 ML 1,000 ML IV SCH ×2 (07:49→20:12)
[2017-04-16] MEDS: ELIQUIS PO SCH ×2 (09:03→20:13)
--- NOTE | 2017-04-16 13:23 | PCM.PROG ---
Progress Note - Progress Note for Day of Date: 04/16/17 - Subjective Subjective: 21 BF ADMITTED ON 04/15/2017 WITH LLE DVT AFTER FAILING OP THERAPY. PT STARTED ON HEAPRIN DRIP. PT HAS SEVERE LLE EDEMA AND PAIN, UNABLE TO BEAR WEIGHT. PT IS ON STRICT BED REST WITH ELEVATION OF LLE. PT CO INABILITY TO BEND LEFT KNEE, XRAY NEGATIVE, MILDLY IMPROVED JOINT MOBILITY THIS AM. WILL CONTINUE CURRENT PLAN OF CARE, REPEAT AM LABS - Past Medical Family Social History Past Med/Fam/Surg Hx: No changes since H&P Allergies: Allergies No Known Drug Allergy Allergy (Verified 07/24/16 21:48) - Review of Systems ROS: No change since H&P - Vital Signs and I&O's Vital Signs: Temperature 98.4 F Pulse Rate [Apical] 79 Respiratory Rate 16 Blood Pressure [Right Arm] 108/55 Blood Pressure [Left Arm] 114/47 Blood Pressure 114/47 O2 Sat by Pulse Oximetry 99 Intake and Output: Intake & Output 04/14/17 04/15/17 04/16/17 04/17/17 11:59 11:59 11:59 11:59 Intake Total 1802 150 Balance 1802 150 - Physical Exam Oriented: Normal Eyes: Normal Ear: Normal Nose: Normal Throat: Normal Respiratory: Diminished Cardiovascular: Normal : Normal Auscultation: Bowel Sounds: Normal Tenderness: Normal Skin: Red (LLE FROM THIGH DOWN), Tender, Hot Musculoskeletal: Left, Knee, Leg, Swelling, Tender Psychiatric: Normal Speech Pattern: Clear, Appropriate - Laboratory and Diagnostics Result Diagrams: 04/16/17 04:20 04/16/17 04:20 Labs: Laboratory WBC 7.9 X10^3/uL (3.6-10.0) 04/16/17 04:20 RBC 3.41 X10^6/uL (3.5-5.4) L 04/16/17 04:20 Hgb 8.9 g/dL (12.0-16.0) L 04/16/17 04:20 Hct 27.2 % (36.0-47.0) L 04/16/17 04:20 MCV 79.9 fL (80.0-100.0) L 04/16/17 04:20 MCH 26.1 pg (27.0-34.0) L 04/16/17 04:20 MCHC 32.7 g/dL (33.0-35.0) L 04/16/17 04:20 RDW 16.0 % (11.6-16.5) 04/16/17 04:20 Plt Count 398 X10^3/uL (150.0-450.0) 04/16/17 04:20 MPV 8.7 fL (7.4-11.0) 04/16/17 04:20 Neut % 60.8 % (42.0-75.0) 04/16/17 04:20 Lymph % 24.8 % (21.0-51.0) 04/16/17 04:20 Haskell % 11.6 % (0.0-13.0) 04/16/17 04:20 Eos % 2.2 % (0.9-2.9) 04/16/17 04:20 Baso % 0.6 % (0.2-1.0) 04/16/17 04:20 Neut # 4.8 x10^3/uL (2.2-4.8) 04/16/17 04:20 Lymph # 2.0 X10^3/uL (1.3-2.9) 04/16/17 04:20 Haskell # 0.9 x10^3/uL (0.3-0.8) H 04/16/17 04:20 Eos # 0.2 x10^3/uL (0.0-0.2) 04/16/17 04:20 Baso # 0.0 X10^3/uL (0.0-0.1) 04/16/17 04:20 Absolute Nucleated RBC 0.0 /100WBC 04/16/17 04:20 ESR 99 MM/HOUR (0-20) H 04/15/17 16:56 INR Target Range - 04/15/17 20:30 INR 1.23 (0.8-1.3) 04/15/17 20:30 PTT 66.4 SECONDS (22.9-36.5) H 04/16/17 11:18 PTT Comment - 04/16/17 11:18 Sodium 137 mmol/L (136-145) 04/16/17 04:20 Corrected Sodium TNP 04/16/17 04:20 Potassium 3.7 mmol/L (3.5-5.1) 04/16/17 04:20 Chloride 105 mmol/L (98-107) 04/16/17 04:20 Carbon Dioxide 23.8 mmol/L (21-32) 04/16/17 04:20 BUN 10 mg/dL (7-18) 04/16/17 04:20 Creatinine 0.63 mg/dL (0.55-1.02) 04/16/17 04:20 Est GFR (MDRD) Af Amer > 60 (>60) 04/16/17 04:20 Est GFR (MDRD) Non-Af > 60 (>60) 04/16/17 04:20 Glucose 100 mg/dL (65-99) H 04/16/17 04:20 Calcium 8.7 mg/dL (8.5-10.1) 04/16/17 04:20 Corrected Calcium 10.1 mg/dL (8.5-10.1) 04/16/17 04:20 Magnesium 1.6 mg/dL (1.7-2.9) L 04/15/17 16:56 Total Bilirubin 0.30 mg/dL (0.2-1.0) 04/16/17 04:20 AST 17 Units/L (15-37) 04/16/17 04:20 ALT 22 Units/L (12-78) 04/16/17 04:20 Alkaline Phosphatase 54 Units/L (46-116) 04/16/17 04:20 C-Reactive Protein 90.10 mg/L (0-3.0) H 04/15/17 16:56 Total Protein 6.6 g/dL (6.4-8.2) 04/16/17 04:20 Albumin 2.3 g/dL (3.4-5.0) L 04/16/17 04:20 Globulin 4.3 g/dL (2.5-4.5) 04/16/17 04:20 Albumin/Globulin Ratio 0.5 Ratio (1.1-2.1) L 04/16/17 04:20 - Plan (1) Deep venous thrombosis of distal end of left lower extremity Status: Acute Qualifiers: Chronicity: acute Qualified Code(s): I82.4Z2 - Acute embolism and thrombosis of unspecified deep veins of left distal lower extremity Plan: HEPARIN DRIP, CONTINUE ELIQUIS, REPEAT AM LABS, US LLE. KNEE XRAY STABLE , STRICT BED REST WITH ELEVATION. PAIN CONTROL (2) Left knee pain Status: Acute Qualifiers: Chronicity: C Plan: PAIN CONTROL, BED REST (3) Left leg pain Status: Acute
[2017-04-16] MEDS: TORADOL 15 MG VIAL IVP PRN (13:34)
[2017-04-16] MEDS: HEPARIN SODIUM IN D5W 25,000 UNITS/500 ML BAG IV PRN (16:31)
[2017-04-16] MEDS: COLACE CAP 100 MG PO SCH (20:13)
[2017-04-16 23:52] LABS: BILIRUBIN,URINE NEGATIVE (NEGATIVE); BLOOD/HEMOGLOBIN,URINE 2+ (NEGATIVE); GLUCOSE, URINE NEGATIVE (NEGATIVE); KETONES,URINE 1+ (NEGATIVE); LEUKOCYTE ESTERASE ,URINE 1+ (NEGATIVE); NITRITES,URINE NEGATIVE (NEGATIVE); PROTEIN,URINE 2+ (NEGATIVE); UROBILINOGEN,URINE 3+ (NORMAL)
[2017-04-17 00:05] LABS: APPEARANCE,URINE HAZY (CLEAR); BACTERIA,URINE 1+ /HPF (NEGATIVE); COLOR,URINE YELLOW (YELLOW); MUCUS,URINE FEW /HPF (NEGATIVE); SQUAMOUS EPITHELIAL CELL,UR MODERATE /HPF (NEGATIVE)
[2017-04-17] MEDS: TORADOL 15 MG VIAL IVP PRN (03:25)
[2017-04-17 06:21] LABS: BASOPHILS % (AUTO) 0.6 % (0.2-1.0); EOSINOPHILS # (AUTO) 0.1 x10^3/uL (0.0-0.2); EOSINOPHILS % (AUTO) 2.1 % (0.9-2.9); HEMATOCRIT 26.8 % (36.0-47.0); HEMOGLOBIN 8.6 g/dL (12.0-16.0); LYMPHOCYTES # (AUTO) 1.9 X10^3/uL (1.3-2.9); LYMPHOCYTES % (AUTO) 30.3 % (21.0-51.0); MEAN CORPUSCULAR HEMOGLOBIN 26.2 pg (27.0-34.0); MEAN CORPUSCULAR HGB CONC 32.3 g/dL (33.0-35.0); MEAN CORPUSCULAR VOLUME 81.4 fL (80.0-100.0); MEAN PLATELET VOLUME 9.2 fL (7.4-11.0); MONOCYTES # (AUTO) 0.8 x10^3/uL (0.3-0.8); NEUTROPHILS # (AUTO) 3.4 x10^3/uL (2.2-4.8); PLATELET COUNT 349 X10^3/uL (150.0-450.0); RED BLOOD COUNT 3.29 X10^6/uL (3.5-5.4); RED CELL DISTRIBUTION WIDTH 16.2 % (11.6-16.5); WHITE BLOOD COUNT 6.3 X10^3/uL (3.6-10.0)
[2017-04-17 06:30] LABS: ALANINE AMINOTRANSFERASE 19 Units/L (12-78); ALKALINE PHOSPHATASE 48 Units/L (46-116); ASPARTATE AMINO TRANSFERASE 17 Units/L (15-37); BLOOD UREA NITROGEN 9 mg/dL (7-18); CALCIUM 8.5 mg/dL (8.5-10.1); CARBON DIOXIDE 24.7 mmol/L (21-32); CHLORIDE 106 mmol/L (98-107); COR CA(FOR HYPOALB) 10.1 mg/dL (8.5-10.1); CREATININE 0.59 mg/dL (0.55-1.02); GLUCOSE 95 mg/dL (65-99); SODIUM 139 mmol/L (136-145); eGFR BLACK RACES > 60 (>60); eGFR NON BLACK RACES > 60 (>60)
[2017-04-17] MEDS: NS 1000 ML 1,000 ML IV SCH ×2 (07:25→10:29)
[2017-04-17] MEDS: ELIQUIS PO SCH ×3 (07:25→21:26)
[2017-04-17] MEDS: HEPARIN SODIUM IN D5W 25,000 UNITS/500 ML BAG IV PRN ×2 (07:25→22:11)
[2017-04-17] MEDS ORDERED: BACTRIM DS TAB PO ONE (09:43)
[2017-04-17] MEDS: BACTRIM DS TAB PO SCH ×2 (09:46→21:26)
[2017-04-17] MEDS: PERCOCET TAB 5/325 MG PO PRN (14:58)
[2017-04-17] MEDS ORDERED: FLEXERIL TAB 10 MG PO PRN (18:13)
--- NOTE | 2017-04-17 18:16 | PCM.PROG ---
Progress Note - Progress Note for Day of Date: 04/17/17 - Subjective Subjective: 21 BF ADMITTED ON 04/15/2017 WITH LLE DVT AFTER FAILING OP THERAPY. PT STARTED ON HEAPRIN DRIP. PT HAS SEVERE LLE EDEMA AND PAIN, UNABLE TO BEAR WEIGHT. PT IS ON STRICT BED REST WITH ELEVATION OF LLE. PT CO INABILITY TO BEND LEFT KNEE, XRAY NEGATIVE, MILDLY IMPROVED JOINT MOBILITY THIS AM. PT STARTED ON FLEXERIL. WILL CONTINUE CURRENT PLAN OF CARE, REPEAT AM LABS - Past Medical Family Social History Past Med/Fam/Surg Hx: No changes since H&P Allergies: Allergies MS No Known Drug Allergy [No Known Drug Allergy] Allergy (Verified 07/24/16 21: 48) - Review of Systems ROS: No change since H&P - Vital Signs and I&O's Vital Signs: Temperature 98.7 F Pulse Rate [Apical] 73 Respiratory Rate 12 Blood Pressure [Right Arm] 108/58 Blood Pressure [Left Arm] 114/47 Blood Pressure 114/47 O2 Sat by Pulse Oximetry 100 Intake and Output: Intake & Output 04/15/17 04/16/17 04/17/17 04/18/17 11:59 11:59 11:59 11:59 Intake Total 1802 3736 980 Output Total 1750 650 Balance 1802 1986 330 - Physical Exam Oriented: Normal Eyes: Normal Ear: Normal Nose: Normal Throat: Normal Respiratory: Diminished Cardiovascular: Normal : Normal Auscultation: Bowel Sounds: Normal Tenderness: Normal Skin: Red (LLE FROM THIGH DOWN), Tender, Hot Musculoskeletal: Left, Knee, Leg, Swelling, Tender Psychiatric: Normal Speech Pattern: Clear, Appropriate - Laboratory and Diagnostics Result Diagrams: 04/17/17 03:00 04/17/17 03:00 Labs: Laboratory WBC 6.3 X10^3/uL (3.6-10.0) 04/17/17 03:00 RBC 3.29 X10^6/uL (3.5-5.4) L 04/17/17 03:00 Hgb 8.6 g/dL (12.0-16.0) L 04/17/17 03:00 Hct 26.8 % (36.0-47.0) L 04/17/17 03:00 MCV 81.4 fL (80.0-100.0) 04/17/17 03:00 MCH 26.2 pg (27.0-34.0) L 04/17/17 03:00 MCHC 32.3 g/dL (33.0-35.0) L 04/17/17 03:00 RDW 16.2 % (11.6-16.5) 04/17/17 03:00 Plt Count 349 X10^3/uL (150.0-450.0) 04/17/17 03:00 MPV 9.2 fL (7.4-11.0) 04/17/17 03:00 Neut % 55.0 % (42.0-75.0) 04/17/17 03:00 Lymph % 30.3 % (21.0-51.0) 04/17/17 03:00 [place] % 12.0 % (0.0-13.0) 04/17/17 03:00 Eos % 2.1 % (0.9-2.9) 04/17/17 03:00 Baso % 0.6 % (0.2-1.0) 04/17/17 03:00 Neut # 3.4 x10^3/uL (2.2-4.8) 04/17/17 03:00 Lymph # 1.9 X10^3/uL (1.3-2.9) 04/17/17 03:00 [place] # 0.8 x10^3/uL (0.3-0.8) 04/17/17 03:00 Eos # 0.1 x10^3/uL (0.0-0.2) 04/17/17 03:00 Baso # 0.0 X10^3/uL (0.0-0.1) 04/17/17 03:00 Absolute Nucleated RBC 0.1 /100WBC 04/17/17 03:00 ESR 99 MM/HOUR (0-20) H 04/15/17 16:56 INR Target Range - 04/15/17 20:30 INR 1.23 (0.8-1.3) 04/15/17 20:30 PTT 113.6 SECONDS (22.9-36.5) H 04/17/17 10:09 PTT Comment - 04/17/17 10:09 Sodium 139 mmol/L (136-145) 04/17/17 03:00 Corrected Sodium TNP 04/17/17 03:00 Potassium 3.8 mmol/L (3.5-5.1) 04/17/17 03:00 Chloride 106 mmol/L (98-107) 04/17/17 03:00 Carbon Dioxide 24.7 mmol/L (21-32) 04/17/17 03:00 BUN 9 mg/dL (7-18) 04/17/17 03:00 Creatinine 0.59 mg/dL (0.55-1.02) 04/17/17 03:00 Est GFR (MDRD) Af Amer > 60 (>60) 04/17/17 03:00 Est GFR (MDRD) Non-Af > 60 (>60) 04/17/17 03:00 Glucose 95 mg/dL (65-99) 04/17/17 03:00 Calcium 8.5 mg/dL (8.5-10.1) 04/17/17 03:00 Corrected Calcium 10.1 mg/dL (8.5-10.1) 04/17/17 03:00 Magnesium 1.6 mg/dL (1.7-2.9) L 04/15/17 16:56 Total Bilirubin 0.20 mg/dL (0.2-1.0) 04/17/17 03:00 AST 17 Units/L (15-37) 04/17/17 03:00 ALT 19 Units/L (12-78) 04/17/17 03:00 Alkaline Phosphatase 48 Units/L (46-116) 04/17/17 03:00 C-Reactive Protein 90.10 mg/L (0-3.0) H 04/15/17 16:56 Total Protein 6.0 g/dL (6.4-8.2) L 04/17/17 03:00 Albumin 2.0 g/dL (3.4-5.0) L 04/17/17 03:00 Globulin 4.0 g/dL (2.5-4.5) 04/17/17 03:00 Albumin/Globulin Ratio 0.5 Ratio (1.1-2.1) L 04/17/17 03:00 Specimen Type Clean catch urine 04/16/17 23:36 Urine Color Yellow (YELLOW) 04/16/17 23:36 Urine Appearance Hazy (CLEAR) 04/16/17 23:36 Urine pH 6.0 (5.0 - 8.0) 04/16/17 23:36 Ur Specific [place] 1.025 (1.000-1.030) 04/16/17 23:36 Urine Protein 2+ (NEGATIVE) 04/16/17 23:36 Urine Glucose (UA) Negative (NEGATIVE) 04/16/17 23:36 Urine Ketones 1+ (NEGATIVE) 04/16/17 23:36 Urine Occult Blood 2+ (NEGATIVE) 04/16/17 23:36 Urine Nitrite Negative (NEGATIVE) 04/16/17 23:36 Urine Bilirubin Negative (NEGATIVE) 04/16/17 23:36 Urine Urobilinogen 3+ (NORMAL) 04/16/17 23:36 Ur Leukocyte Esterase 1+ (NEGATIVE) 04/16/17 23:36 Urine RBC 5-10 /HPF (NEGATIVE) 04/16/17 23:36 Urine WBC 8-12 /HPF (NEGATIVE) 04/16/17 23:36 Ur Squamous Epith Cells Moderate /HPF (NEGATIVE) 04/16/17 23:36 Urine Bacteria 1+ /HPF (NEGATIVE) 04/16/17 23:36 Urine Mucus Few /HPF (NEGATIVE) 04/16/17 23:36 Ur Culture Indicated? Yes/culture set up 04/16/17 23:36 - Plan (1) Deep venous thrombosis of distal end of left lower extremity Status: Acute Qualifiers: Chronicity: acute Qualified Code(s): I82.4Z2 - Acute embolism and thrombosis of unspecified deep veins of left distal lower extremity Plan: HEPARIN DRIP, CONTINUE ELIQUIS, REPEAT AM LABS, US LLE. KNEE XRAY STABLE , STRICT BED REST WITH ELEVATION. PAIN CONTROL (2) Left knee pain Status: Acute Qualifiers: Chronicity: C Plan: PAIN CONTROL, BED REST (3) Left leg pain Status: Acute
[2017-04-17] MEDS: COLACE CAP 100 MG PO SCH (21:26)
[2017-04-18] MEDS: TORADOL 15 MG VIAL IVP PRN ×2 (01:25→15:50)
[2017-04-18] MEDS: NS 1000 ML 1,000 ML IV SCH ×2 (02:37→15:51)
[2017-04-18 05:13] LABS: BASOPHILS # (AUTO) 0.1 X10^3/uL (0.0-0.1); BASOPHILS % (AUTO) 1.1 % (0.2-1.0); EOSINOPHILS # (AUTO) 0.1 x10^3/uL (0.0-0.2); EOSINOPHILS % (AUTO) 2.3 % (0.9-2.9); HEMATOCRIT 25.5 % (36.0-47.0); HEMOGLOBIN 8.3 g/dL (12.0-16.0); LYMPHOCYTES # (AUTO) 1.8 X10^3/uL (1.3-2.9); LYMPHOCYTES % (AUTO) 28.3 % (21.0-51.0); MEAN CORPUSCULAR HGB CONC 32.7 g/dL (33.0-35.0); MEAN CORPUSCULAR VOLUME 79.6 fL (80.0-100.0); MEAN PLATELET VOLUME 8.9 fL (7.4-11.0); MONOCYTES # (AUTO) 0.6 x10^3/uL (0.3-0.8); MONOCYTES % (AUTO) 9.2 % (0.0-13.0); NEUTROPHILS # (AUTO) 3.8 x10^3/uL (2.2-4.8); NEUTROPHILS % (AUTO) 59.1 % (42.0-75.0); PLATELET COUNT 371 X10^3/uL (150.0-450.0); RED BLOOD COUNT 3.21 X10^6/uL (3.5-5.4); RED CELL DISTRIBUTION WIDTH 16.4 % (11.6-16.5); WHITE BLOOD COUNT 6.5 X10^3/uL (3.6-10.0)
[2017-04-18 05:38] LABS: ALANINE AMINOTRANSFERASE 18 Units/L (12-78); ALKALINE PHOSPHATASE 48 Units/L (46-116); ASPARTATE AMINO TRANSFERASE 16 Units/L (15-37); BLOOD UREA NITROGEN 9 mg/dL (7-18); CALCIUM 8.4 mg/dL (8.5-10.1); CARBON DIOXIDE 22.1 mmol/L (21-32); CHLORIDE 109 mmol/L (98-107); CREATININE 0.65 mg/dL (0.55-1.02); GLUCOSE 90 mg/dL (65-99); SODIUM 141 mmol/L (136-145); TOTAL PROTEIN 5.9 g/dL (6.4-8.2); eGFR BLACK RACES > 60 (>60); eGFR NON BLACK RACES > 60 (>60)
[2017-04-18] MEDS ORDERED: TEFLARO 600 MG in NS 50 ML IV + SPIKE MINIBAG* 50 ML IV SCH (09:00)
[2017-04-18] MEDS: ELIQUIS PO SCH (10:57)
[2017-04-18] MEDS: BACTRIM DS TAB PO SCH (10:57)
[2017-04-18] MEDS: HEPARIN SODIUM IN D5W 25,000 UNITS/500 ML BAG IV PRN (13:48)
[2017-04-18] MEDS: PERCOCET TAB 5/325 MG PO PRN (15:46)
--- NOTE | 2017-04-18 18:11 | MRI ---
MR left knee without contrast Indication: DVT left leg. History of pain and swelling. Technique: Multiplanar multi sequence imaging through the left knee without contrast. Comparison: Ultrasound from April 15, 2017. Findings: Bone marrow signal is normal. There is extensive subcutaneous soft tissue swelling. Relati vely high signal seen in the region of the popliteal vessels and DVT here is possible, particularly given ultrasound findings. Joint effusion is present. Patellofemoral cartilage appears relatively in tact. The lateral meniscus is intact. ACL and PCL are normal. 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 Medial collateral ligament and lateral collateral ligamentous complex is intact. Nondispla terrell horizontal oblique tear of the medial meniscus is not completely excluded. Impression: 1. High signal in the region of the popliteal vein could reflect DVT, particularly given ultrasound findings. 2. Extensive edema and soft tissue swelling about the knee and thigh is Wells calf compatible with D VT. Small effusion. 3. Mild medial femorotibial chondromalacia and possible nondisplaced tear posterior horn medial meni scus. Reported By:
[2017-04-18 18:13] VITALS: BP 115/66
[2017-04-21 05:30] LABS: PROTEIN C ACTIVITY 121 % (83-168)
== END 2017-04-18 18:30 | disposition short-term general hospital (02) | DRG 301 ==
LOC: ICU 14:52 → UNDOADMOB 14:52 → OBSVTOIN 15:27 → ICU 15:27 → OBS 04-16 17:29 → ICU 04-16 17:29
PROVIDERS: ADMIT Internal Medicine; ATTEND Internal Medicine
DX: I82.4Z2 Acute embolism and thrombosis of unspecified deep veins of left distal lower extremity (principal); M25.462 Effusion, left knee; M25.562 Pain in left knee; R26.89 Other abnormalities of gait and mobility; Z79.01 Long term (current) use of anticoagulants
CPT/HCPCS: 36415; 73560; 73721; 80053; 81001; 81241; 82607; 82728; 82746; 83540; 83735; 84466; 85014; 85018; 85025; 85303; 85306; 85610; 85652; 85730; 86140; 87086; 93970; 97535; A4222; J0712; J1644